=== PATIENT | male | born 1960 | race Caucasian/White ===

== ENCOUNTER 2019-08-24 09:17 | Outpatient (CLI) | payer MEDICAID ==
[~2019-08-24] VITALS: Ht 185.4 cm; Wt 116.6 kg
--- NOTE | 2019-08-24 13:14 | Consultation ---
DATE OF CONSULTATION: 08/24/2019 CONSULTING PHYSICIAN: Quintin Sharif MD CHIEF COMPLAINT: Hep C, cirrhosis. PAST MEDICAL HISTORY: 1. Asthma. 2. Cirrhosis. 3. Hep C. 4. Encephalopathy. 5. Hypertension. 6. Severe umbilical hernia. PAST SURGICAL HISTORY: None. MEDICATIONS: Please see medication reconciliation list. FAMILY HISTORY: No family history of GI malignancies. SOCIAL HISTORY: The patient is a former drinker and smoker. ALLERGIES: No known drug allergies. REVIEW OF SYSTEMS: Positive for pain at the hernia site. PHYSICAL EXAMINATION: VITAL SIGNS: Temperature 98.3, blood pressure 129/91, pulse 67, respirations 20. HEENT: Normocephalic and atraumatic. Sclerae are anicteric. NECK: Supple. No evidence of obvious lymphadenopathy. CARDIOVASCULAR: Regular rate and rhythm. Plus S1 and S2. LUNGS: Clear to auscultation bilaterally. ABDOMEN: Positive bowel sounds. Soft. There is a huge umbilical hernia with some area of the skin ulcerations at the tip and some oozing little bit of serosanguineous material in that area. EXTREMITIES: No cyanosis, no clubbing, no edema. ASSESSMENT: The patient is a 58-year-old male, from GI standpoint has current problems, 1. Hepatitis C. 2. Screening EGD for evaluation of varices for cirrhosis. 3. Screening colonoscopy. 4. Severe or large umbilical hernia. PLAN: The patient apparently is seeing a nurse epidemiologist for hep C. According to him, he had a video chat with him and is pending treatment for hep C, so we recommend the patient to follow with the nurse epidemiologist. We will plan to do an endoscopy for the patient for evaluation of the esophageal varices. The patient also needs a colonoscopy. We are going to hold off doing it at the same time given this huge umbilical hernia that needs to be seen by the surgeon. According to the patient, the patient has an appointment this week, so we are going to wait for colonoscopy after he sees the surgeon. Quintin Sharif M.D. DR: JIM JOB#: [id number] CC:
[2019-08-24 14:57] VITALS: BP 129/91
[2019-08-24] MEDS ORDERED: FUROSEMIDE20 M1 ORAL (14:57)
[2019-08-24] MEDS ORDERED: PROPRANOLOL HCL20 MG ORAL (14:57)
[2019-08-24] MEDS ORDERED: SPIRONOLACTONE50 MG ORAL (14:57)
[2019-08-24] MEDS ORDERED: LACTULOSE20 GM/301 ORAL (14:57)
[2019-08-24] MEDS ORDERED: ALBUTEROL SULF8.5 G1 INH (15:05)
== END 2019-08-24 11:17 | disposition home or self-care (01) ==
LOC: PAN 09:17
DX: B19.20 Unspecified viral hepatitis C without hepatic coma (principal); K74.60 Unspecified cirrhosis of liver; I10 Essential (primary) hypertension; Z87.891 Personal history of nicotine dependence; K42.9 Umbilical hernia without obstruction or gangrene
CPT/HCPCS: G0463